=== PATIENT | female | born 1995 | race Caucasian/White ===

== ENCOUNTER 2019-04-22 09:17 | Emergency (ER) | payer OTHER, MEDICAID ==
[~2019-04-22] VITALS: Ht 162.6 cm; Wt 108.9 kg
[~2019-04-22 09:17] MED LIST: MEDROXYPROGESTERONE; NOHOMEMEDICATIONS; NORCO 5-325 TA1 EACH PO; ULTRAM 50MG TAB50 MG PO
[2019-04-22 10:06] LABS: ABSOLUTE BASOPHILS 0.1 thou/uL (0.0-0.2); ABSOLUTE EOSINOPHILS 0.3 thou/uL (0.0-0.7); ABSOLUTE LYMPHOCYTES 1.7 thou/uL (0.8-5.3); ABSOLUTE MONOCYTES 0.3 thou/uL (0.0-1.2); ABSOLUTE NEUTROPHILS 6.5 thou/uL (1.6-8.1); EOSINOPHILS 2.8 %; HEMATOCRIT 37.4 % (37.0-47.0); HEMOGLOBIN 12.4 gm/dL (12.0-15.0); LYMPHOCYTES 19.1 %; MCH 26.7 pg (26.0-34.0); MCHC 33.2 g/dL (28.0-37.0); MCV 80.4 fL (80.0-100.0); MONOCYTES 3.7 %; MPV 7.7 fl. (7.2-11.1); NUCLEATED RBCS 0 /100WBC; PLATELET COUNT* 322 thou/uL (150-400); POLYS 73.4 %; RBC 4.65 mil/uL (4.20-5.00); RDW-CV 16.3 % (10.5-14.5); WBC 8.9 thou/uL (4.0-11.0)
[2019-04-22 10:12] LABS: CREATININE 0.7 mg/dL (0.6-1.3); POTASSIUM 4.4 mmol/L (3.5-5.1)
[2019-04-22 10:17] LABS: ALBUMIN 3.6 g/dL (3.4-5.0); TOTAL BILIRUBIN 0.2 mg/dL (<0.1-1.0); TOTAL PROTEIN 8.3 g/dL (6.4-8.2)
[2019-04-22] MEDS ORDERED: PREDNISONE 5 MG5 MG PO (10:25)
[2019-04-22 10:48] VITALS: BP 152/97
== END 2019-04-22 10:49 | disposition home or self-care (01) ==
LOC: M.ERS 09:17
PROVIDERS: Emergency Medicine
DX: L53.9 Erythematous condition, unspecified (principal); I10 Essential (primary) hypertension; F17.210 Nicotine dependence, cigarettes, uncomplicated

== ENCOUNTER 2019-08-07 15:56 | Emergency (ER) | payer OTHER, MEDICAID ==
[~2019-08-07] VITALS: Ht 162.6 cm; Wt 104.3 kg
[~2019-08-07 15:56] MED LIST changes: +PREDNISONE 5 MG5 MG PO
[2019-08-07] MEDS ORDERED: NORCO 5-325 TA1 EAC1 PO (17:14)
[2019-08-07] MEDS ORDERED: LISINOPRIL-HCT1 EACH PO (17:16)
[2019-08-07 17:35] VITALS: BP 166/90
== END 2019-08-07 17:36 | disposition home or self-care (01) ==
LOC: M.ERS 15:56
DX: M25.562 Pain in left knee (principal); Z76.0 Encounter for issue of repeat prescription; I10 Essential (primary) hypertension; F17.210 Nicotine dependence, cigarettes, uncomplicated

== ENCOUNTER 2019-08-23 09:18 | Emergency (ER) | payer OTHER, MEDICAID ==
[~2019-08-23] VITALS: Ht 162.6 cm; Wt 99.8 kg
[~2019-08-23 09:18] MED LIST changes: +LISINOPRIL-HCT1 EACH PO; +NORCO 5-325 TA1 EAC1 PO
[2019-08-23 10:12] LABS: INFLUENZA A ANTIGEN Negative (Negative)
[2019-08-23] MEDS ORDERED: TAMIFLU75 MG PO (10:32)
[2019-08-23 10:40] VITALS: BP 136/89
== END 2019-08-23 10:41 | disposition home or self-care (01) ==
LOC: M.ERS 09:18
PROVIDERS: Emergency Medicine Emergency Medical Services
DX: J11.1 Influenza due to unidentified influenza virus with other respiratory manifestations (principal); I10 Essential (primary) hypertension; F17.210 Nicotine dependence, cigarettes, uncomplicated

== ENCOUNTER 2019-12-29 17:38 | Emergency (ER) | payer OTHER, MEDICAID ==
[~2019-12-29] VITALS: Ht 162.6 cm; Wt 99.8 kg
[~2019-12-29 17:38] MED LIST changes: +TAMIFLU75 MG PO
[2019-12-29 18:20] LABS: ABSOLUTE BASOPHILS 0.1 thou/uL (0.0-0.2); ABSOLUTE EOSINOPHILS 0.1 thou/uL (0.0-0.7); ABSOLUTE LYMPHOCYTES 2.5 thou/uL (0.8-5.3); ABSOLUTE MONOCYTES 0.6 thou/uL (0.0-1.2); ABSOLUTE NEUTROPHILS 11.3 thou/uL (1.6-8.1); BASOPHILS 0.6 %; HEMATOCRIT 38.9 % (37.0-47.0); HEMOGLOBIN 12.8 gm/dL (12.0-15.0); LYMPHOCYTES 16.8 %; MCH 26.5 pg (26.0-34.0); MCV 80.4 fL (80.0-100.0); MPV 8.1 fl. (7.2-11.1); NUCLEATED RBCS 0 /100WBC; PLATELET COUNT* 371 thou/uL (150-400); POLYS 77.6 %; RBC 4.84 mil/uL (4.20-5.00); RDW-CV 14.7 % (10.5-14.5); WBC 14.6 thou/uL (4.0-11.0)
[2019-12-29 18:29] LABS: CALCIUM 8.5 mg/dL (8.5-10.1); CREATININE 0.9 mg/dL (0.6-1.3); POTASSIUM 3.5 mmol/L (3.5-5.1)
[2019-12-29 18:34] LABS: TOTAL BILIRUBIN 0.4 mg/dL (<0.1-1.0); TOTAL PROTEIN 8.7 g/dL (6.4-8.2)
[2019-12-29 18:44] LABS: URINE BILIRUBIN NEGATIVE (Negative); URINE BLOOD TRACE (Negative); URINE CLARITY SL CLOUDY; URINE COLOR YELLOW; URINE GLUCOSE-RANDOM NEGATIVE (Negative); URINE KETONES NEGATIVE (Negative); URINE LEUKOCYTES-REFLEX NEGATIVE (Negative); URINE NITRITE-REFLEX NEGATIVE (Negative); URINE PROTEIN NEGATIVE (Negative); URINE SPECIFIC GRAVITY >= 1.030 (1.005-1.030); URINE UROBILINOGEN 0.2 E.U./dl (0.2-1.0)
[2019-12-29 18:45] LABS: BACTERIA-REFLEX 1-9 Few /HPF (None Seen); MUCUS 0-3 Light strn/LPF (None Seen); SQUAMOUS 0-3 Few /LPF (0-3); URINE RBC 0-2 Rare /HPF (0-2); URINE WBC-REFLEX 0-5 Rare /HPF (0-5)
[2019-12-29 18:46] LABS: CRYSTALS None Seen /LPF (None Seen); HYALINE CASTS 0-3 Few /LPF (None Seen)
[2019-12-29] MEDS ORDERED: BACTRIM DS TAB1 EAC1 PO (20:02)
[2019-12-29] MEDS ORDERED: NORCO 5-325 TA1 EAC1 PO (20:02)
[2019-12-29] MEDS ORDERED: ONDANSETRON ODT4 MG PO (20:02)
[2019-12-29 21:03] VITALS: BP 150/103
== END 2019-12-29 21:03 | disposition home or self-care (01) ==
LOC: M.ERS 17:38
PROVIDERS: Physician Assistant
DX: R10.12 Left upper quadrant pain (principal); R42 Dizziness and giddiness; I10 Essential (primary) hypertension; F17.210 Nicotine dependence, cigarettes, uncomplicated